=== PATIENT | male | born 1960 | race Caucasian/White ===

== ENCOUNTER → 2025-04-10 | Outpatient (BNVA) | payer MEDICARE, SELFPAY | END | disposition home or self-care (01) | PROVIDERS: PCP Family Medicine; Referring Provider Family Medicine; Visit Provider Student in an Organized Health Care Education/Training Program | DX: N43.3 Hydrocele, unspecified (principal); I86.1 Scrotal varices; R73.03 Prediabetes; E78.1 Pure hyperglyceridemia; F17.210 Nicotine dependence, cigarettes, uncomplicated | CPT/HCPCS: 99202; G0463 ==

== ENCOUNTER → 2025-06-04 | Outpatient (BNVA) | payer MEDICARE, SELFPAY | END | disposition home or self-care (01) | PROVIDERS: PCP Family Medicine; Referring Provider Family Medicine; Visit Provider Urology | DX: N40.1 Benign prostatic hyperplasia with lower urinary tract symptoms (principal); N13.8 Other obstructive and reflux uropathy; N43.3 Hydrocele, unspecified; F17.210 Nicotine dependence, cigarettes, uncomplicated; Z71.6 Tobacco abuse counseling | CPT/HCPCS: 81003; 99212; G0463 ==

== ENCOUNTER 2025-06-12 09:40 | Day surgery (SDC) | payer MEDICARE, SELFPAY ==
--- NOTE | 2025-06-11 10:45 | EKG_ITS ---
[facility] Test Date: 2025-06-11 Pat Name: NOEL MAGAÑA Department: Room: - Gender: Male Investment Sales Assistant: ANIRUDH : 1960 Requested By: Kojo Mcclellan Order Number: [id number] Reading MD: Kojo Mcclellan Measurements Intervals [place] Rate: 87 P: 64 TN: 140 QRS: 19 QRSD: 86 T: 49 QT: 341 QTc: 412 Interpretive Statements SINUS RHYTHM No previous ECG available for comparison /store/S0/[id number]/[id number]
[2025-06-11 14:03] VITALS: BMI 31.1
--- NOTE | 2025-06-11 15:44 | SUR.PREOP ---
Pt notified to come in at 1000 tomorrow.
[2025-06-11 15:50] LABS: Alanine Aminotransferase 22 U/L (10-49); Albumin, Serum 4.1 gm/dL (3.4-4.8); Albumin/Globulin Ratio 2.0 (1.2-2.2); Alkaline Phosphatase 55 U/L (46-116); Anion Gap 8 (7-16); Aspartate Amino Transferase 21 U/L (0-34); BUN/Creatinine Ratio 20 Ratio (12-20); Bilirubin,Total 0.4 mg/dL (0.3-1.2); Blood Urea Nitrogen 18 mg/dL (9-23); Calcium 9.5 mg/dL (8.3-10.6); Calcium (Corrected) 9.5 mg/dL (8.5-10.1); Carbon Dioxide 25.1 mMol/L (20.0-31.0); Chloride 109 mMol/L (98-107); Creatinine (Component) 0.9 mg/dL (0.6-1.3); Estimated Creatinine Clearance 91.2 mL/min (>60); Globulin 2.1 gm/dL (2.3-3.5); Glucose 97 mg/dL (74-106); Osmolality,Calculated 285 (275-295); Potassium 4.1 mMol/L (3.4-5.1); Sodium 142 mMol/L (136-145); Total Protein 6.2 gm/dL (5.7-8.2); eGFR > 60 See Note
[2025-06-12] VITALS (7 sets, daily range): BP systolic 121–135; BP diastolic 73–81; PULSE 75–96; RESP 14–20; TEMP 36.3–36.4; O2SAT 95–99; BMI 33.0
[2025-06-12] MEDS: RINGERS LACTATED 1000 ML 1,000 ML 20 ML IV (11:54)
[2025-06-12] MEDS: ALBUTEROL/IPRATROPIUM (Duoneb) RT SOL 3 ML NEBU INH (11:55)
--- NOTE | 2025-06-12 13:38 | ESOP_ITS ---
Date of Procedure 06/12/25 Pre Op Diagnosis Right hydrocele Post Op Diagnosis Same Procedure Right hydrocelectomy Findings Right large hydrocele small right testes Procedure Description Indication for procedure this is a 65-year-old gentleman he is seen in urology office he had large hydrocele right side. Patient was given options of either aspiration of the hydrocele or hydrocelectomy procedure and complications of each were discussed with patient in great detail. He elected to go for hydrocelectomy I explained to him his swelling is going to get worse before it gets better he understood it and informed consent is obtained Patient was brought to the operating room in a satisfactory condition after appropriate premedication he was appropriately identified by surgeon and operating room staff patient was positioned in the operating table general anesthesia was given uneventfully. Parts were prepped and draped in the usual sterile fashion. Right hydrocele was identified it was very large. Next between blood vessels I made a transverse incision between the blood vessels it was carried down to the various fascial layers. I was able to see the hydrocele sac and it was delivered into the incision. Next I excised the hydrocele sac proper hemostasis were secured at the tunica vaginalis was was everted around the crawl structure and was sutured with 3-0 chromic after proper hemostasis were secured no active bleeding was seen. Wound was irrigated with antibiotic solution at this time I placed quarter-inch [place] drain it was brought out through a separate stab wound. I inserted the old local anesthetic into the cord structure. Incision was closed in layers sterile dressings were applied pressure bandage was given patient after having tolerated the procedure well was sent to recovery room in a satisfactory condition follow-up appointment in urology office for removal of the [place] drain in 2 days he is given Anesthesia GETA Pathology / specimen Other (Hydrocele sac) Estimated Blood Loss 5 Condition Stable Disposition PACU Surgeon Catracho Reid MD Surgical Staff Operation Date: 06/12/25 12:15 Case Staff Anesthesiologist: Javid Lora
--- NOTE | 2025-06-12 13:38 | SUR.PHASEI ---
pt arrived to PACU via gurney obtunded, breathing unlabored, dressing to scrotum clean, dry, and intact with scrotal support in place, report from Michael BEATTY and Dr Lora
--- NOTE | 2025-06-12 14:15 | SUR.PHASEII ---
pt tolerating oral fluids without difficulty swallowing or n/v
--- NOTE | 2025-06-12 14:38 | SUR.PHASEII ---
pt awake, alert, able to follow commands, breathing unlabored, dressing to scrotum clean, dry, and intact with scrotal support in place, discharge instructions given with friend Batsheva present, all questions answered, Dr Reid at bedside to verbalize discharge instructions, pt able to dress self and ambulate to wheelchair with steady gait, pt discharged via wheelchair with all belongings and copies of discharge paperwork.
== END 2025-06-12 14:38 | disposition home or self-care (01) ==
PROVIDERS: Anesthesiology; Referring Provider Urology; Visit Provider Urology
PROC: (CPT 55040; principal; 2025-06-12 12:15)
DX: N43.3 Hydrocele, unspecified (principal); Z01.810 Encounter for preprocedural cardiovascular examination; N40.1 Benign prostatic hyperplasia with lower urinary tract symptoms; N13.8 Other obstructive and reflux uropathy
CPT/HCPCS: 55040; 36415; 80053; 87070; 87075; 87205; 93005; A4217; A4649; A9270; J0131; J1100; J1580; J1885; J2250; J2405; J2704; J3010; J3490; J7120; J0665

== ENCOUNTER → 2025-06-14 | Outpatient (BNVA) | payer MEDICARE, SELFPAY | END | disposition home or self-care (01) | PROVIDERS: Visit Provider Urology | DX: N40.1 Benign prostatic hyperplasia with lower urinary tract symptoms (principal); N13.8 Other obstructive and reflux uropathy; R97.20 Elevated prostate specific antigen [PSA]; Z98.890 Other specified postprocedural states; F17.210 Nicotine dependence, cigarettes, uncomplicated; Z71.6 Tobacco abuse counseling | CPT/HCPCS: 81003; 99212; G0463 ==

== ENCOUNTER → 2025-06-17 | Outpatient (BNVA) | payer MEDICARE, SELFPAY ==
--- NOTE | 2025-06-18 07:54 | URONOTEN_ITS ---
RE: NOEL MAGAÑA : 1960 DATE: 06/17/2025 CHIEF COMPLAINT: 1. BPH with urinary obstruction and LUTS, on tamsulosin 0.4 mg p.o. daily. IPSS score is 25/35. Quality of life due to symptom 5/6. He is on tamsulosin 0.4 mg p.o. daily. 2. Elevated PSA of 4.1. PSA was repeated and it came back to normal. 3. Large right hydrocele status post hydrocelectomy. HISTORY OF PRESENT ILLNESS: This is a 65-year-old gentleman. This patient has BPH with urinary obstruction and LUTS. The patient is on tamsulosin 0.4 mg p.o. daily. He still is not getting better. He had right hydrocelectomy. Drain is removed. Examination of the scrotum revealed swelling, which is acceptable and there is no sign of infection. He has no history of hypertension, diabetes, heart disease, glaucoma, or bleeding diathesis. The patient has no fever or chills. Past medical history, family history, review of the system, and personal history: Please refer to the patient history form dated 06/17/2025. It is an HPI, in EMR. PHYSICAL EXAMINATION: VITAL SIGNS: Stable. They are in HPI and EMR. GENERAL: Condition is satisfactory. Orientation x3. HEENT: Normocephalic and atraumatic. Eyes: No anemia or jaundice. NECK: Supple. Trachea central. Thyroid is not enlarged. EXTREMITIES: Revealed no edema, cyanosis, or clubbing. CHEST: Symmetrical. HEART: Regular rate and rhythm. ABDOMEN: Obese. No masses. Liver, spleen or kidney are not palpable. No CVA tenderness. GENITALIA: Status post right hydrocelectomy. No evidence of infection. Drain is removed. RECOMMENDATIONS: 1. Continue with tamsulosin 0.4 mg p.o. daily. 2. Schedule for ultrasound of the prostate gland. Instructions were given to the patient verbally as well as in writing. He will be followed in Urology office. DT: 10:03:49 TT: 11:50:00 Ref: [id number] - TID: [id number]
== END | disposition home or self-care (01) ==
PROVIDERS: Visit Provider Urology
DX: N40.1 Benign prostatic hyperplasia with lower urinary tract symptoms (principal); N13.8 Other obstructive and reflux uropathy; Z98.890 Other specified postprocedural states; E66.9 Obesity, unspecified; Z68.31 Body mass index [BMI] 31.0-31.9, adult
CPT/HCPCS: 81003; 99212; G0463

== ENCOUNTER → 2025-07-19 | Outpatient (BNVA) | payer MEDICARE, SELFPAY | END | disposition home or self-care (01) | PROVIDERS: PCP Physician Assistant Medical; Referring Provider Physician Assistant Medical; Visit Provider Urology | DX: N40.1 Benign prostatic hyperplasia with lower urinary tract symptoms (principal); N13.8 Other obstructive and reflux uropathy; F17.210 Nicotine dependence, cigarettes, uncomplicated; Z71.6 Tobacco abuse counseling | CPT/HCPCS: 76872 ==